=== PATIENT | female | born 1990 | race Caucasian/White ===

== ENCOUNTER 2020-04-21 10:57 | Emergency (ER) | payer BC ==
[~2020-04-21] VITALS: Ht 167 cm; Wt 90.0 kg
[~2020-04-21 10:57] MED LIST: AC325T PO; HYDR-34 PO; ONDA8TAB13 PO; PREN1TAB14 PO
[2020-04-21] MEDS ORDERED: AMOX500C2 PO (13:08)
--- NOTE | 2020-04-21 13:08 | ED EENT ---
History of Present Illness General Chief Complaint: Oral/Throat Problems Stated Complaint: SORE THROAT History of Present Illness Date Seen by Provider: Apr 21, 2020 Time Seen by Provider: 11:20 Initial Comments 29-year-old female presents for sore throat. She denies any fevers, cough or change in smell/taste. She did travel to the beach in [place] but wore masks and sanitized if they stopped for gas, and did not eat out. History of recurrent Strep Pharyngitis. Timing/Duration: abrupt, yesterday Severity: mild Location: throat Prearrival Treatment: no prearrival treatment Associated Symptoms: No cough, No drooling, No fever, No malaise, No nasal congestion/drainage, No poor fluid intake, No poor solids intake; sore throat Allergies and Home Medications Allergies Coded Allergies: No Known Drug Allergies (Verified , 07/17/08) Home Medications Amoxicillin 500 Mg Capsule, 500 MG PO TID Prescribed by: ARLENE GARCIA on 04/21/20 1308 Ondansetron 8 Mg Tab.rapdis, 8 MG PO Q6H PRN for NAUSEA/VOMITING Prescribed by: ROBIN SALDIVAR on 10/06/16 1640 Patient Home Medication List Home Medication List Reviewed: Yes Review of Systems Review of Systems Constitutional: no symptoms reported, see HPI Throat: see HPI, pain; denies neck stiffness All Other Systems Reviewed Negative Unless Noted: Yes Past Bkpnvkm-Fjizcu-Nianeq Hx Past Med/Social Hx: Reviewed Nursing Past Med/Soc Hx Patient Social History Recent Foreign Travel: No Contact w/Someone Who Travel: No Recent Hopitalizations: Yes (VAGINAL DELIVERY X1) Past Medical History Orthopedic, Tubal Ligation Reproductive Disorders: No HIV/AIDS: No Family Medical History No Pertinent Family Hx Physical Exam Height, Weight, BMI Height: 5'6" Weight: 190lbs. oz. 86.666883nr; BMI Method:Stated General Appearance: WD/WN, no apparent distress Eyes: bilateral eye normal inspection, bilateral eye PERRL, bilateral eye EOMI Ears: bilateral ear auricle normal, bilateral ear canal normal, bilateral ear TM normal Nose: normal inspection; No discharge Mouth/Throat: No dental tenderness; pharynx swelling, pharynx tenderness, tonsillar exudate, tonsillar swelling; No uvula swelling, No voice changes Neck: non-tender, full range of motion, supple, normal inspection, lymphadenopathy (R), lymphadenopathy (L) Cardiovascular: normal peripheral pulses, regular rate, rhythm Respiratory: chest non-tender, lungs clear, normal breath sounds Gastrointestinal: normal bowel sounds, non tender, soft Neurologic/Psychiatric: no motor/sensory deficits, alert, normal mood/affect Skin: normal color, warm/dry; No rash Progress/Results/Core Measures Results/Orders Lab Results Laboratory Tests Test 04/21/20 12:10 Range/Units Group A Streptococcus Screen POSITIVE H NEGATIVE My Orders Orders - ARLENE GARCIA Rapid Strep A Screen (04/21/20 12:11) Departure Impression Primary Impression: Strep pharyngitis Disposition: HOME, SELF-CARE Condition: Improved Departure-Patient Inst. Decision time for Depature: 12:45 Referrals: [facility] (PCP/Family) Primary Care Physician Patient Instructions: Strep Throat (DC) Add. Discharge Instructions: Take antibiotics as prescribed. Salt water gargles for your throat every 2-3 hours as needed. Regular toothbrush away in 2 days. Wash pillowcases daily. Alternate between Tylenol 650 mg and ibuprofen 600 mg every 4 hours for pain or fever. Do not share drinks or eating utensils. Follow-up with your primary care provider if symptoms are not improving or worsen. Return to the emergency department for new, urgent concerns. All discharge instructions reviewed with patient and/or family. Voiced understanding. Scripts Amoxicillin (Amoxicillin) 500 Mg Capsule 500 MG PO TID, #21 CAP 0 Refills Prov: ARLENE GARCIA 04/21/20 ARLENE GARCIA Apr 21, 2020 13:08
[2020-04-21 14:32] VITALS: BP 128/85
[2020-04-21] MEDS ORDERED: AMOXICILLIN 500 MG (POLYMOX) CAP PO ONE (15:06)
--- NOTE | 2020-04-21 15:08 | NUR ---
Patient has been awaiting with her daughter in the ER. Script was sent to the pharmacy however secondary to daughters condition the patient will not be leaving the department. Provider Kiara Solorio APRN added an amoxicillin 500mg tablet for the patient.
== END 2020-04-21 15:24 | disposition home or self-care (01) ==
LOC: EDUNIT# 10:57 → ER 10:57
DX: J02.0 Streptococcal pharyngitis (principal)
CPT/HCPCS: 87430; 99284

== ENCOUNTER 2020-08-19 10:45 | Outpatient (RCR) | payer BC ==
[~2020-08-19 10:45] MED LIST changes: +AMOX500C2 PO
== END 2020-09-16 16:00 | disposition home or self-care (01) ==
PROVIDERS: ATTEND Orthopaedic Surgery
DX: S43.431A Superior glenoid labrum lesion of right shoulder, initial encounter (principal); F32.9 Major depressive disorder, single episode, unspecified; Z87.81 Personal history of (healed) traumatic fracture; Z85.41 Personal history of malignant neoplasm of cervix uteri; Z87.820 Personal history of traumatic brain injury; Z98.890 Other specified postprocedural states

== ENCOUNTER → 2022-03-13 | Outpatient (CLI) | payer BC ==
--- NOTE | 2022-03-13 16:19 | Diagnostic Imaging Report ---
PROCEDURE: US Non-ob pelvis comp/trans. TECHNIQUE: Multiple realtime grayscale images were obtained of the pelvis in various projections endovaginally. Transabdominal imaging was also performed. INDICATION: Family history of ovarian cancer. FINDINGS: Uterus measures 9 x 5.5 x 6.3 cm. Endometrial stripe 1.4 cm. Right ovary measures 3 x 2.5 x 3.4 cm. There is a complex cyst measuring 1.6 x 1.5 cm. The left ovary measures 3 x 2 x 2.6 cm. There is normal blood flow to both ovaries. There is no free fluid. IMPRESSION: Echogenic complex cyst in the right ovary measuring 1.6 cm. Dictated by: Dictated on workstation # [id number]
== END ==
LOC: RAD 14:51
PROVIDERS: ATTEND Obstetrics & Gynecology
DX: N83.201 Unspecified ovarian cyst, right side (principal); Z80.41 Family history of malignant neoplasm of ovary
CPT/HCPCS: 76830; 76856

== ENCOUNTER 2022-04-30 05:30 | Outpatient (CLI) | payer BC ==
[~2022-04-30] VITALS: Ht 165.1 cm; Wt 92.0 kg
== END 2022-05-01 11:12 | disposition home or self-care (01) ==
LOC: PREOP 05:30
PROVIDERS: ATTEND Obstetrics & Gynecology
DX: Z01.818 Encounter for other preprocedural examination (principal)

== ENCOUNTER 2022-05-07 05:54 | Day surgery (SDC) | payer BC ==
[2022-05-07] VITALS (8 sets, daily range): BP systolic 96–136; BP diastolic 66–81
[~2022-05-07] VITALS: Ht 165 cm; Wt 92.0 kg
[2022-05-07] MEDS ORDERED: ceFAZolin 2 GM IV Premixed 50 ML IV ONE (06:15)
[2022-05-07 06:40] LABS: BASOPHILS % (AUTO) 1 % (0-10); EOSINOPHILS # (AUTO) 0.2 10^3/uL (0.0-0.3); EOSINOPHILS % (AUTO) 3 % (0-10); HEMATOCRIT 41 % (35-52); HEMOGLOBIN 13.9 g/dL (11.5-16.0); LYMPHOCYTES % (AUTO) 36 % (12-44); MEAN CORPUSCULAR HEMOGLOBIN 29 pg (25-34); MEAN CORPUSCULAR HGB CONC 34 g/dL (32-36); MEAN CORPUSCULAR VOLUME 87 fL (80-99); MEAN PLATELET VOLUME 10.6 fL (9.0-12.2); MONOCYTES # (AUTO) 0.5 10^3/uL (0.0-1.0); MONOCYTES % (AUTO) 6 % (0-12); NEUTROPHILS # (AUTO) 4.6 10^3/uL (1.8-7.8); NEUTROPHILS % (AUTO) 55 % (42-75); PLATELET COUNT 220 10^3/uL (130-400); WHITE BLOOD COUNT 8.3 10^3/uL (4.3-11.0)
[2022-05-07] MEDS ORDERED: ceFAZolin 2 GM IV Premixed 50 ML ONE (06:45)
[2022-05-07] MEDS: LACTATED RINGERS 1,000 ML IV PRN ×2 (06:47→10:48)
[2022-05-07 06:49] LABS: ALBUMIN 3.7 GM/DL (3.2-4.5); POTASSIUM 3.9 MMOL/L (3.6-5.0)
[2022-05-07] MEDS ORDERED: LIDOCAINE PF 2% 5 ML (XYLOCAINE) VIAL ONE (06:49)
[2022-05-07] MEDS ORDERED: MIDAZOLAM 2 MG/2 ML (VERSED) VIAL ONE (06:49)
[2022-05-07] MEDS ORDERED: ONDANSETRON 4 MG/2 ML (SDV) Z0FRAN ONE (06:49)
[2022-05-07] MEDS ORDERED: SEVOFLURANE (ULTANE) 15 ML INHAL SOLN ONE ×2 (06:49→09:23)
[2022-05-07] MEDS ORDERED: proPOfol 200 MG/20 ML (DIPRIVAN) VIAL IV ONE (06:49)
[2022-05-07] MEDS ORDERED: fentaNYL INJ 100 MCG/2 ML AMP ONE (06:49)
[2022-05-07 06:50] LABS: CALCIUM 8.7 MG/DL (8.5-10.1)
[2022-05-07 06:51] LABS: TOTAL PROTEIN 6.2 GM/DL (6.4-8.2)
[2022-05-07 06:53] LABS: BILIRUBIN,TOTAL 0.2 MG/DL (0.1-1.0)
[2022-05-07 06:55] LABS: CREATININE SERUM 0.71 MG/DL (0.60-1.30)
--- NOTE | 2022-05-07 07:34 | Progress Note-Pre Operative ---
Pre-Operative Progress Note H&P Reviewed The H&P was reviewed, patient examined and no changes noted. Time Seen by Provider: 07:20 Date H&P Reviewed: May 07, 2022 Time H&P Reviewed: 07:05 Pre-Operative Diagnosis: AUB, failed medical therapy, previous sterilization procedure. Plan NIKHIL MORALES MD May 07, 2022 07:34
[2022-05-07] MEDS ORDERED: OXYC5CAP18 PO (07:39)
[2022-05-07] MEDS ORDERED: ceFAZolin INJECTION 1,000 MG VIAL IV ONE (08:15)
[2022-05-07] MEDS ORDERED: HYDROmorphone 2 MG/ML VIAL (DILAUDID) ONE (08:16)
[2022-05-07] MEDS ORDERED: ROCURONIUM 50 MG/5 ML (ZEMURON) VIAL IV ONE (08:40)
[2022-05-07] MEDS ORDERED: NEOSTIGMINE (BLOXIVERZ ) 1 MG/1ML 10 ML VIAL ONE (09:14)
[2022-05-07] MEDS ORDERED: GLYCOPYRROLATE 0.2 MG/ML (ROBINUL) 2 ML VIAL ONE ×2 (09:14→09:18)
[2022-05-07] MEDS ORDERED: ONDANSETRON 4 MG/2 ML (SDV) Z0FRAN IVP PRN (09:30)
[2022-05-07] MEDS ORDERED: HYDROmorphone 2 MG/ML VIAL (DILAUDID) IV ONE (09:30)
--- NOTE | 2022-05-07 09:59 | OB/GYN Operative Report ---
Operative Report Procedure: robotic assisted laparoscopic instruct me with fulguration of endometriosis Preoperative diagnosis abnormal uterine bleeding with dysmenorrhea Postoperative diagnosis same Surgeon: Sameer Anesthesia: General Complications: none Findings: normal appearing uterus tubes and ovaries and cervix Procedure: after the risks, alternatives, complications, or discuss with the patient and consent was obtained, she was taken to the operating room where General anesthesia was obtained without difficulty. She was placed on doors lithotomy position and prepped and draped in the usual sterile fashion. Fully catheter and STDs were in place. Speculum was placed in the patients vagina in the inter-lip of the service cross with the [place]. I figure of 80 Vicryl suture was placed at three and 9 oclock position. A ruel manipulator was assembled in the usual sterile fashion and all other instruments removed from the patients vagina. Attention was then turned to the abdominal portion of the procedure. An 8 mm skin incision was made about the umbilicus. Veress needle was advance without difficulty and pneumoperitoneum was achieved. The needle was removed and an 8 mm trocar and sleeve advanced without difficulty. The patient was placed in Trendelenburg and an 8 mm skin incision was made the right and left lower quadrant and corresponding trochars advance without difficulty. The pelvis was surveyed with the above findings. The ureters were visualized to course outside the anticipated surgical field. The robot was docked in the usual sterile fashion and bipolar fitness traded instrument in the first arm, Camera the second, and hook monopolar cautery in the third. From the robotic consul, the fallopian tubes were amputated. The ovarian suspensory ligaments were isolated cauterizing cutting hemostasis was a shirt. The round ligaments were likewise isolated cauterizing cutting hemostasis was a shirt. The anterior and posterior leave for the Terrance met with dissect it down towards the cervix. The uterine vessels were skeletonized, isolated, caFrom the robotic consul, the fallopian tubes were amputated. The ovarian suspensory ligaments were isolated cauterize and cut and hemostasis was a shirt. The round ligaments were likewise isolated cauterize and cut and hemostasis was a shirt. The anterior and posterior leave for the Broad ligaments were dissected down towards the cervix. The uterine vessels were skeletonized, isolated, and cut and hemostasis was appreciated. Anterior colpotomy was made after dissection of the vesicouterine peritoneum. The cervix was amputated circumferentially. Specimen was delivered through the vagina and sent for pathology. A lab sponge was placed in the patient's vagina to maintain pneumoperitoneum. Instruments were exchanged and the vaginal cuff was closed with a barbed, Velox stitch in a running fashion. Two stitches were run lateral to the midline crossing in the midline with additional stitches through the uterosacral ligament. Hemostasis was appreciated and all instruments removed from the patients abdomen. The skin incisions were close with subcuticular for a monocryl stitch. Dermond greer dressing was placed Hemostasis was appreciate in the vagina. The Pratt catheter was removed. All instruments needles and lab sponges were counted and correct times two. The patient received 2 g of Ancef prior to procedure. Patient tolerated the p rocedure well NIKHIL MARIE MD May 07, 2022 09:59
[2022-05-07] MEDS ORDERED: KETOROLAC 30 MG/ML VIAL ONE (12:27)
[2022-05-07] MEDS ORDERED: KETOROLAC 30 MG/ML VIAL IVP PRN (12:30)
[2022-05-07] MEDS ORDERED: IBUPROFEN 600 MG (MOTRIN) TAB PO PRN (12:30)
[2022-05-07] MEDS ORDERED: oxyCODONE 5 MG/5 ML ORAL SOLN (roxiCODONE) 5 ML UDC PO PRN (12:30)
[2022-05-07] MEDS ORDERED: ACETAMINOPHEN 500 MG TAB (TYLENOL) PO PRN (12:30)
--- NOTE | 2022-05-08 10:24 | Anesthesia-General Post-Op ---
General Post Op Complications Complications None Follow Up Care/Instructions Patient Instructions None needed. Anesthesia/Patient Condition Patient Condition Patient discharged yesterday afternoon. Chart reviewed and no apparent adverse anesthesia problems noted. ARIEL SIMON CRNA May 08, 2022 10:24
== END 2022-05-07 14:00 | disposition home or self-care (01) ==
LOC: SDC 05:54 → WS 10:25 → SDC 14:00
PROVIDERS: ATTEND Obstetrics & Gynecology
DX: C53.0 Malignant neoplasm of endocervix (principal); N83.8 Other noninflammatory disorders of ovary, fallopian tube and broad ligament; Z87.891 Personal history of nicotine dependence
CPT/HCPCS: 36415; 80053; 84703; 85025; 86850; 86900; 86901; 87081

== ENCOUNTER 2022-06-09 17:35 | Emergency (ER) | payer BC ==
[~2022-06-09] VITALS: Ht 167.7 cm; Wt 97.3 kg
[~2022-06-09 17:35] MED LIST changes: +OXYC5CAP18 PO
--- NOTE | 2022-06-09 17:56 | ED GU-Female ---
General Chief Complaint: - Reproductive Stated Complaint: VAGINAL BLEEDING, CRAMPS Source: patient History of Present Illness Date Seen by Provider: Jun 09, 2022 Time Seen by Provider: 17:55 Initial Comments PT ARRIVES VIA POV FROM HOME PT HAD LAPAROSCOPIC HYSTERCTOMY [address] MARIE 05/07/22 --DONE FOR ABNORMAL PAP SMEARS SHE HAS BEEN HAVING NORMAL, BROWNISH DISCHARGE-SMALL AMOUNT NO ABDOMINAL OR PELVIC PAIN NO FEVER NO NAUSEA/VOMITING NO URINARY SYMPTOMS IMMEDIATELY PRIOR TO ARRIVAL, SHE WAS STRAINING TO HAVE A BM AND SHE HAD SUDDEN GUSH OF BRIGHT RED BLOOD FROM VAGINA, WHICH HAS NOW STOPPED SHE DENIES ANY VAGINAL OR PELVIC PAIN NO DIZZINESS SHE HAS HISTORY OF IBS AND STOOLS ARE LOOSE, BUT SHE ALWAYS HAS TO STRAIN TO HAVE A BM, AND TODAY WAS NO DIFFERENT PT IS NOT TAKING ANY PAIN MEDICATION, OR ANY STOOL SOFTENERS /LAXATIVES AT THIS TIME PT HAS FOLLOW UP APPOINTMENT WITH DR. MARIE 06/18/22 DID DO SOME LIFTING LAST WEEK AND STRAINED HER ABDOMEN, AND CALLED LAST WEEK AND APPOINTMENT MADE FOR 06/18/22 PCP: DENISE Allergies and Home Medications Allergies Coded Allergies: No Known Drug Allergies (Verified , 07/17/08) Patient Home Medication List Home Medication List Reviewed: Yes Oxycodone HCl (Oxycodone HCl) 5 Mg Capsule, 5 MG PO Q6H Prescribed by: Nikhil Marie on 05/07/22 0739 Review of Systems Review of Systems Constitutional: no symptoms reported Respiratory: no symptoms reported Cardiovascular: no symptoms reported Gastrointestinal: no symptoms reported Genitourinary: see HPI Musculoskeletal: no symptoms reported Skin: no symptoms reported Psychiatric/Neurological: No Symptoms Reported Endocrine: No Symptoms Reported Hematologic/Lymphatic: No Symptoms Reported Past Wktjsxm-Porbex-Wvhbew Hx Immunizations Up To Date First/Initial COVID19 Vaccinat: 2020 Second COVID19 Vaccination Rock: 2020 Third COVID19 Vaccination Date: 2020 Seasonal Allergies Seasonal Allergies: Yes Past Medical History Surgeries: Yes (FEMUR AND HIP REPAIR, RT LABRUM AND BICEP, BREAST AUGUMENTATION) Breast, Hysterectomy, Orthopedic, Tubal Ligation Respiratory: No Currently Using CPAP: No Currently Using BIPAP: No Cardiac: Yes ( CHILD, NO ISSUES) Heart Murmur Neurological: No Reproductive Disorders: Yes (ABNORMAL PAP SMEARS) Female Reproductive Disorders: 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 MARIE FOR ABNORMAL PAP SMEARS Physical Exam Vital Signs Vital Signs - First Documented 06/09/22 17:47 Temp 36.8 Pulse 85 Resp 16 B/P (MAP) 126/87 (100) Pulse Ox 98 O2 Delivery Room Air Capillary Refill : Height, Weight, BMI Height: 5'6" Weight: 190lbs. oz. 86.556015lc; 33.79 BMI Method:Stated General Appearance: WD/WN, no apparent distress, other (WALKS UPRIGHT AND MOVES WITHOUT DIFFICULTY) Gastrointestinal: non tender, soft, other (INCISIONS WELL HEALED, NO SIGNS OF INFECTION) Rectal: normal exam Pelvic: normal external exam, other (VAGINAL CUFF INCISION IS INTACT. SCANT AMOUNT OF BROWNISH DISCHARGE WITH A TINY SPECK OF BRIGHT RED BLOOD. ) Extremities: normal inspection, normal capillary refill Neurologic/Psychiatric: no motor/sensory deficits, alert, normal mood/affect, oriented x 3 Skin: normal color, warm/dry Progress/Results/Core Measures Suspected Sepsis SIRS Temperature: Pulse: Respiratory Rate: Blood Pressure / Mean: Results/Orders Vital Signs/I&O 06/09/22 17:47 Temp 36.8 Pulse 85 Resp 16 B/P (MAP) 126/87 (100) Pulse Ox 98 O2 Delivery Room Air Capillary Refill : Departure Impression Primary Impression: Post-op bleeding Disposition: 01 HOME, SELF-CARE Condition: Stable Departure-Patient Inst. Decision time for Depature: 18:07 Referrals: NO,LOCAL PHYSICIAN (PCP) Primary Care Physician GARY FOSTER (Family) Primary Care Physician NIKHIL MARIE MD Patient Instructions: Bleeding After Surgery Add. Discharge Instructions: CONTINUE ALL POST OP INSTRUCTIONS CALL DR. MARIE'S OFFICE IN THE MORNING FOR RECHECK RETURN TO ER IF ANY OF YOUR SYMPTOMS WORSEN All discharge instructions reviewed with patient and/or family. Voiced understanding. NAWAF SILVER DO Jun 09, 2022 17:56
[2022-06-09 18:24] VITALS: BP 122/78
== END 2022-06-09 18:24 | disposition home or self-care (01) ==
LOC: EDUNIT# 17:35 → ER 17:37
DX: N99.821 Postprocedural hemorrhage of a genitourinary system organ or structure following other procedure (principal)
CPT/HCPCS: 99282

== ENCOUNTER 2022-12-28 08:13 | Emergency (ER) | payer SELFPAY ==
[~2022-12-28] VITALS: Ht 167 cm; Wt 102.0 kg
--- NOTE | 2022-12-28 09:19 | ED Lower Extremity ---
General Chief Complaint: Lower Extremity Stated Complaint: PAIN ON RT LATERAL THIGH Nursing Triage Note: PT STATES RT LATERAL THIGH WARM AND SWELLING SINCE YESTERDAY, HURT RT KNEE ABOUT 4-5 WKS AGO History of Present Illness Date Seen by Provider: Dec 28, 2022 Time Seen by Provider: 09:09 Initial Comments Patient is a 32-year-old female who presents to the emergency room with a chief complaint of a "lump" to the right lateral thigh. Patient states she noticed it last night it is tender even without touching it. She denies any known trauma although she states she is quite "clumsy". She does not recall injuring it or hitting it on anything. It is just at the superficial margin of her right thigh tattoo on the lateral aspect. She injured her knee playing with kids a couple of weeks ago and has popliteal pain in the right knee. It does not click pop or lock up. No numbness tingling or weakness that is new to the right lower extremity. No back pain or hip pain. She messaged her nurse practitioner this morning and they advised her to come into the emergency room. Onset: other (Last night) Severity: moderate Pain/Injury Location: right thigh Method of Injury: unknown Modifying Factors: Worse With Movement; Improves With Other (Palpation makes it worse) Allergies and Home Medications Allergies Coded Allergies: No Known Drug Allergies (Verified , 07/17/08) Patient Home Medication List Home Medication List Reviewed: Yes Oxycodone HCl (Oxycodone HCl) 5 Mg Capsule, 5 MG PO Q6H Prescribed by: Paris Marie on 05/07/22 0739 Review of Systems Constitutional: see HPI EENTM: no symptoms reported Respiratory: no symptoms reported Cardiovascular: no symptoms reported Gastrointestinal: no symptoms reported Musculoskeletal: other (Right thigh pain, right popliteal pain) Skin: no symptoms reported All Other Systems Reviewed Negative Unless Noted: Yes Past Kqvkqjo-Gchlkg-Colgjz Hx Patient Social History Tobacco Use?: Yes Smoking Status: Former Smoker Substance use?: Yes Substance type: Marijuana Alcohol Use?: Yes Alcohol type: Beer Alcohol Frequency: Rarely Immunizations Up To Date First/Initial COVID19 Vaccinat: 2020 Second COVID19 Vaccination Rock: 2020 Third COVID19 Vaccination Date: 2020 Seasonal Allergies Seasonal Allergies: Yes Past Medical History Surgery/Hospitalization HX: Total hyst w/o oopharectomy on 05/07/[address] Marie. 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 MARIE FOR ABNORMAL PAP SMEARS Physical Exam Vital Signs Vital Signs - First Documented 12/28/22 08:21 Temp 36.8 Pulse 81 Resp 18 B/P (MAP) 142/75 (97) Pulse Ox 99 O2 Delivery Room Air Capillary Refill : Less Than 3 Seconds Height, Weight, BMI Height: 5'6" Weight: 190lbs. oz. 86.844658hz; 36.00 BMI Method:Stated General Appearance: WD/WN, no apparent distress HEENT: PERRL/EOMI Cardiovascular: regular rate, rhythm Respiratory: no respiratory distress, no accessory muscle use Hips: bilateral hip non-tender, bilateral hip normal inspection, bilateral hip normal range of motion, bilateral hip no evidence of injury Legs: bilateral leg non-tender, bilateral leg normal inspection, bilateral leg normal range of motion, bilateral leg no evidence of injury; right leg other (Right lateral thigh, induration proximal third of her tattooed area at the proximal thigh, increased warmth this evidence. No fluctuance or evidence of insect bite or abscess. Tender to touch area of induration is approximately 5 cm in length) Knees: bilateral knee non-tender, bilateral knee normal inspection, bilateral knee normal range of motion, bilateral knee no evidence of injury Ankles: bilateral ankle non-tender, bilateral ankle normal inspection, bilateral ankle normal range of motion, bilateral ankle no evidence of injury Feet: bilateral foot non-tender, bilateral foot normal inspection, bilateral foot normal range of motion, bilateral foot no evidence of injury Neurologic/Psychiatric: alert, normal mood/affect, oriented x 3 Skin: normal color, warm/dry Progress/Results/Core Measures Results/Orders Vital Signs/I&O 12/28/22 08:21 Temp 36.8 Pulse 81 Resp 18 B/P (MAP) 142/75 (97) Pulse Ox 99 O2 Delivery Room Air Blood Pressure Mean: 97 Departure Impression Primary Impression: Thigh lump Qualified Codes: R22.41 - Localized swelling, mass and lump, right lower limb Disposition: HOME, SELF-CARE Condition: Stable Departure-Patient Inst. Decision time for Depature: 09:18 Referrals: KANE SEGAL APRN (PCP) Primary Care Physician Add. Discharge Instructions: Ice the sore area off-and-on 20 minutes at a time 3-4 times daily. Wrkt-lqc-[id number] ibuprofen 3 tablets which is 600 mg every 6 hours with food as needed for pain. Monitor the area for increasing warmth and redness. If you develop a fever please return to the emergency room for reevaluation. Please follow-up with your primary care provider by the end of the week or early next week. Work/School Note: Work Release Form Date Seen in the Emergency Department: Dec 28, 2022 Return to Work: Dec 28, 2022 LUDMILA BRISCOE MD Dec 28, 2022 09:19
[2022-12-28 09:23] VITALS: BP 142/75
== END 2022-12-28 09:23 | disposition home or self-care (01) ==
LOC: EDUNIT# 08:13 → ER 08:17
DX: R22.41 Localized swelling, mass and lump, right lower limb (principal); Z87.891 Personal history of nicotine dependence
CPT/HCPCS: 99281